=== PATIENT | male | born 1940 | race African-American/Black ===

== ENCOUNTER 2017-12-10 13:14 | Emergency (ER) | payer MEDICARE, BC ==
[2017-12-10 16:07] LABS: #Lymphocytes 1.5 thou/uL (1.20-3.40); #Monocytes 1.4 thou/uL (0.11-0.59); #Neutrophils 9.2 thou/uL (1.40-6.50); %Basophils 0.2 % (0.0-1.0); %Eosinophils 0.2 % (0.0-10.0); %Lymphocytes 12.4 % (21.0-51.0); %Monocytes 11.6 % (0.0-10.0); %Neutrophils 75.5 % (42.0-75.0); Hemoglobin 11.3 g/dL (14.0-18.0); Mean Corpuscular HGB CONC 32.6 g/dL (32.0-36.0); Mean Corpuscular Hemoglobin 30.3 pg (27.0-31.0); Mean Corpuscular Volume 92.9 fl (80.0-94.0); Mean Platelet Volume 8.5 fL (7.4-10.4); Platelet Count 169 thou/uL (130-400); RBC Distribution Width 12.1 % (11.5-14.5); Red Blood Cell (RBC) Count 3.72 mill/uL (4.70-6.10); White Blood Cell (WBC) Count 12.1 thou/uL (4.8-10.8)
[2017-12-10 16:18] LABS: ALT (SGPT) 18 U/L (8-55); AST (SGOT) 27 U/L (5-34); Albumin 3.9 g/dL (3.4-4.8); Alkaline Phosphatase 82 U/L (40-150); Anion Gap 17 mmol/L (10-20); BUN (Urea Nitrogen) 31 mg/dL (8.4-25.7); Calc. Creatinine Clearance 0 mL/min (70-130); Calcium 8.6 mg/dL (7.8-10.44); Carbon Dioxide 24 mmol/L (23-31); Chloride 99 mmol/L (98-107); Estimated GFR-MDRD 41; Globulin 3.4 g/dL (2.4-3.5); Glucose 119 mg/dL (83-110); Potassium 4.3 mmol/L (3.5-5.1); Protein, Total 7.3 g/dL (5.8-8.1); Sodium 136 mmol/L (136-145)
== END 2017-12-10 17:19 | disposition home or self-care (01) ==
LOC: ERS 13:14
DX: L03.115 Cellulitis of right lower limb (principal); I25.10 Atherosclerotic heart disease of native coronary artery without angina pectoris; I11.0 Hypertensive heart disease with heart failure; I50.9 Heart failure, unspecified; E78.5 Hyperlipidemia, unspecified
CPT/HCPCS: 36415; 80053; 83605; 85025; 87040; 99283

== ENCOUNTER 2018-05-08 17:34 | Emergency (ER) | payer MEDICARE, BC ==
[2018-05-08 19:34] LABS: #Basophils 0.1 thou/uL (0.0-0.2); #Eosinphils 0.1 thou/uL (0.0-0.7); #Lymphocytes 1.8 thou/uL (1.20-3.40); #Monocytes 0.8 thou/uL (0.11-0.59); #Neutrophils 5.4 thou/uL (1.40-6.50); %Basophils 1.1 % (0.0-1.0); %Eosinophils 0.9 % (0.0-10.0); %Lymphocytes 22.4 % (21.0-51.0); %Monocytes 9.7 % (0.0-10.0); %Neutrophils 65.9 % (42.0-75.0); Hemoglobin 15.3 g/dL (14.0-18.0); Mean Corpuscular HGB CONC 32.9 g/dL (32.0-36.0); Mean Corpuscular Hemoglobin 30.1 pg (27.0-31.0); Mean Corpuscular Volume 91.3 fL (78.0-98.0); Mean Platelet Volume 8.1 fL (7.4-10.4); Platelet Count 143 thou/uL (130-400); RBC Distribution Width 12.6 % (11.5-14.5); Red Blood Cell (RBC) Count 5.09 mill/uL (4.70-6.10); White Blood Cell (WBC) Count 8.2 thou/uL (4.8-10.8)
[2018-05-08] MEDS ORDERED: Ketorolac Tromethamine 30 MG/ML VIAL ONE (19:47)
--- NOTE | 2018-05-08 19:52 | RAD ---
LEFT ELBOW FOUR VIEWS: HISTORY: Injured elbow one week ago. Persistent pain. FINDINGS: There are moderate degenerative changes at the elbow. There is spurring from the coronoid process. Mild spurring is seen from the distal humerus, laterally, at the radial-humeral joint. There is prom inent enthesophyte from the olecranon. Joint narrowing and spurring from the posterior olecranon, at the joint space. No significant joint effusion. No evidence of acute fracture identified. 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 POS: [facility]
[2018-05-08 19:58] LABS: ALT (SGPT) 13 U/L (8-55); AST (SGOT) 14 U/L (5-34); Albumin 4.2 g/dL (3.4-4.8); Alkaline Phosphatase 102 U/L (40-150); Anion Gap 9 mmol/L (10-20); BUN (Urea Nitrogen) 10 mg/dL (8.4-25.7); CRP (Inflammatory) 2.67 mg/dL (= or < 0.5); Calc. Creatinine Clearance 0 mL/min (70-130); Calcium 9.3 mg/dL (7.8-10.44); Carbon Dioxide 32 mmol/L (23-31); Chloride 100 mmol/L (98-107); Estimated GFR-MDRD 49; Globulin 3.9 g/dL (2.4-3.5); Glucose 95 mg/dL (83-110); Potassium 3.7 mmol/L (3.5-5.1); Protein, Total 8.1 g/dL (5.8-8.1); Sodium 137 mmol/L (136-145)
[2018-05-08] MEDS ORDERED: Lidocaine 1% w/Epinephrine 1:100K 20 ML VIAL ONE (20:11)
[2018-05-08 21:23] LABS: BF Color Red; BF WBC/Nonhematics Ct. - Manua 1075 /cumm; Clarity Cloudy/Turbid (Clear); Tube # 1
[2018-05-08 21:43] LABS: BF RBC Count - Manual 30500 /cumm
[2018-05-08 21:44] LABS: Body Fluid Source SYNOVIAL FLUID
[2018-05-08 21:49] LABS: BF Segmented Neutrophils 44 %; Cell Count Non Hematic 53 %; Lymphocytes 3 %
== END 2018-05-08 22:15 | disposition home or self-care (01) ==
LOC: ERS 17:34
DX: L03.116 Cellulitis of left lower limb (principal); I25.10 Atherosclerotic heart disease of native coronary artery without angina pectoris; E78.5 Hyperlipidemia, unspecified; I11.0 Hypertensive heart disease with heart failure; I50.9 Heart failure, unspecified; Z79.899 Other long term (current) drug therapy; Z79.01 Long term (current) use of anticoagulants; Z79.82 Long term (current) use of aspirin
CPT/HCPCS: 20605; 36415; 80053; 85025; 85060; 85652; 86140; 87040; 87070; 87205; 89051; 96365; 96375; J1885; J2001; J3370

== ENCOUNTER 2019-09-27 14:32 | Outpatient (CLI) | payer MEDICARE, BC ==
--- NOTE | 2019-09-27 14:57 | RAD ---
EXAM: Chest 2 views: HISTORY: Congestive heart failure COMPARISON: 05/21/2017 FINDINGS: There is a normal-sized cardiomediastinal silhouette. The pacemaker is unchanged in position. There is no evidence of consolidation, mass, or pleural effusion. The bones are unremarkable. IMPRESSION: No evidence of acute cardiopulmonary disease
== END 2019-09-27 14:33 | disposition home or self-care (01) ==
LOC: BICRAD 14:32
PROVIDERS: ATTEND Internal Medicine Cardiovascular Disease
DX: I50.42 Chronic combined systolic (congestive) and diastolic (congestive) heart failure (principal)
CPT/HCPCS: 71046

== ENCOUNTER 2021-06-19 13:03 | Outpatient (CLI) | payer MEDICARE, BC | END 2021-06-19 13:04 | disposition home or self-care (01) | LOC: BICRAD 13:03 | PROVIDERS: ATTEND Internal Medicine Cardiovascular Disease | DX: Z92.29 Personal history of other drug therapy (principal) | CPT/HCPCS: 71046 ==

== ENCOUNTER 2022-01-27 09:20 | Outpatient (CLI) | payer MEDICARE, BC | END 2022-01-27 09:21 | disposition home or self-care (01) | LOC: BICCT 09:20 | PROVIDERS: ATTEND Specialist | DX: C18.7 Malignant neoplasm of sigmoid colon (principal); N28.89 Other specified disorders of kidney and ureter; K80.20 Calculus of gallbladder without cholecystitis without obstruction; Z98.890 Other specified postprocedural states | CPT/HCPCS: 74176 ==

== ENCOUNTER 2022-02-19 10:45 | Inpatient (IN) | payer MEDICARE, BC ==
[2022-02-20 11:05] VITALS: BMI 31.1
[2022-02-24] MEDS ORDERED: Fentanyl 100 MCG/2 ML VIAL ONE ×2 (06:38→11:49)
[2022-02-24] MEDS ORDERED: Midazolam HCl 2 mg/2 ml Vial ONE (06:38)
[2022-02-24] MEDS ORDERED: Acetaminophen 500 MG TAB ONE (06:43)
[2022-02-24] MEDS ORDERED: Ketorolac Tromethamine 30 MG/ML VIAL ONE (06:43)
[2022-02-24] MEDS ORDERED: Lidocaine 1% w/Epinephrine 1:100K 20 ML VIAL ONE (06:52)
[2022-02-24] MEDS ORDERED: fentaNYL Citrate/PF 100 MCG/2 ML SYRINGE ONE (07:23)
[2022-02-24] MEDS ORDERED: Phenylephrine 10 MG/ML VIAL ONE (07:23)
[2022-02-24] MEDS ORDERED: SUGAMMADEX SODIUM 200 MG/2 ML VIAL ONE (07:23)
[2022-02-24] MEDS ORDERED: cefOXitin 2 GM VIAL ONE ×2 (07:26→09:36)
[2022-02-24] MEDS ORDERED: Sodium Chloride 0.9% 100 ML ONE (07:26)
[2022-02-24] MEDS ORDERED: PROPOFOL 200 MG/20 ML VIAL ONE (07:41)
[2022-02-24] MEDS ORDERED: Lidocaine 1% PF 5 ML VIAL ONE (07:41)
[2022-02-24] MEDS ORDERED: ePHEDrine 50 MG/ML VIAL ONE (07:41)
[2022-02-24] MEDS ORDERED: Ondansetron PF 4 MG/2 ML Vial ONE (07:41)
[2022-02-24] MEDS ORDERED: Dexamethasone 20 MG/5 ML VIAL ONE (07:41)
[2022-02-24] MEDS ORDERED: PHENYLEPHRINE-NS 100 MCG/ML 10 ML SYRINGE ONE (07:41)
[2022-02-24] MEDS ORDERED: Bupivacaine HCl 0.5%/Epinephrine 1:200,000/PF 30 ml Vial ONE (07:41)
[2022-02-24] MEDS ORDERED: Esmolol 100 MG/10 ML VIAL ONE (07:41)
[2022-02-24] MEDS ORDERED: Rocuronium Bromide 10 MG/ML (10ML VIAL) ONE (07:41)
[2022-02-24] MEDS ORDERED: Promethazine HCl 25 MG/ML VIAL IVPB PRN (10:40)
[2022-02-24] MEDS ORDERED: Ondansetron HCl/PF 4 MG/2 ML Vial IVP PRN (10:40)
[2022-02-24] MEDS ORDERED: HYDROmorphone 2 MG/ML VIAL SLOW IVP PRN (10:40)
[2022-02-24] MEDS ORDERED: Morphine 4 MG/ML VIAL SLOW IVP PRN (11:28)
[2022-02-24] MEDS ORDERED: Ondansetron PF 4 MG/2 ML Vial IVP PRN (11:28)
[2022-02-24] MEDS ORDERED: Promethazine HCl 25 MG/ML VIAL IM PRN (11:28)
[2022-02-24] MEDS ORDERED: Morphine 2 MG/ML VIAL SLOW IVP PRN (11:28)
[2022-02-24] MEDS ORDERED: hydrALAZINE 20 MG/ML VIAL SLOW IVP PRN (11:28)
[2022-02-24] MEDS ORDERED: Potassium Chloride 20 MEQ TAB PO SCH (12:30)
[2022-02-24] MEDS ORDERED: Furosemide 40 MG TAB PO SCH (12:30)
[2022-02-24] MEDS ORDERED: Amiodarone 200 MG TAB PO SCH (12:30)
[2022-02-24] MEDS: hydrALAZINE 25 MG TAB PO SCH ×2 (18:15→20:49)
[2022-02-24] MEDS: D5 1/2 NS w/20 mEq KCL 1,000 ML IV SCH ×2 (19:27→19:51)
[2022-02-24] MEDS: Enoxaparin Sodium 40 MG/0.4 ML SYRINGE SC SCH (20:50)
[2022-02-24] MEDS ORDERED: Famotidine 20 MG TAB PO SCH (21:00)
[2022-02-24] MEDS ORDERED: Famotidine/PF 20 mg/2ml Vial SLOW IVP SCH (21:00)
[2022-02-25] MEDS: D5 1/2 NS w/20 mEq KCL 1,000 ML IV SCH ×3 (02:26→20:23)
[2022-02-25 06:24] LABS: #Lymphocytes 0.6 thou/uL (1.20-3.40); #Monocytes 0.8 thou/uL (0.11-0.59); #Neutrophils 10.6 thou/uL (1.40-6.50); %Basophils 0.2 % (0.0-1.0); %Lymphocytes 5.3 % (21.0-51.0); %Monocytes 6.8 % (0.0-10.0); %Neutrophils 87.7 % (42.0-75.0); Hemoglobin 8.1 g/dL (14.0-18.0); Mean Corpuscular HGB CONC 29.4 g/dL (32.0-36.0); Mean Corpuscular Hemoglobin 24.6 pg (27.0-31.0); Mean Corpuscular Volume 83.6 fL (78.0-98.0); Platelet Count 175 thou/uL (130-400); RBC Distribution Width 14.9 % (11.5-14.5); Red Blood Cell (RBC) Count 3.27 mill/uL (4.70-6.10); White Blood Cell (WBC) Count 12.1 thou/uL (4.8-10.8)
[2022-02-25] MEDS: HYDROcodone/Acetaminophen 7.5/325 mg Tablet PO PRN ×2 (06:31→20:25)
[2022-02-25 06:40] LABS: Anion Gap 13 mmol/L (10-20); BUN (Urea Nitrogen) 20 mg/dL (8.4-25.7); Calc. Creatinine Clearance 41 mL/min (70-130); Calcium 8.4 mg/dL (7.8-10.44); Carbon Dioxide 24 mmol/L (23-31); Chloride 104 mmol/L (98-107); Glucose 121 mg/dL (83-110); Potassium 4.7 mmol/L (3.5-5.1); Sodium 136 mmol/L (136-145)
[2022-02-25] MEDS ORDERED: HYDROcodone/Acetaminophen 7.5/325 mg Tablet PO PRN (07:56)
[2022-02-25] MEDS: hydrALAZINE 25 MG TAB PO SCH ×3 (09:43→20:22)
[2022-02-25] MEDS: Tamsulosin HCl 0.4 MG CAP PO SCH (09:43)
[2022-02-25] MEDS: Amiodarone 200 MG TAB PO SCH (09:43)
[2022-02-25] MEDS: Potassium Chloride 20 MEQ TAB PO SCH (09:44)
[2022-02-25] MEDS: Furosemide 40 MG TAB PO SCH (09:44)
[2022-02-25] MEDS: Famotidine 20 MG TAB PO SCH (20:22)
[2022-02-25] MEDS: Enoxaparin Sodium 40 MG/0.4 ML SYRINGE SC SCH (20:23)
[2022-02-25] MEDS ORDERED: Famotidine/PF 20 mg/2ml Vial SLOW IVP SCH (21:00)
[2022-02-26] MEDS: D5 1/2 NS w/20 mEq KCL 1,000 ML IV SCH ×3 (03:47→20:20)
[2022-02-26 05:47] LABS: #Lymphocytes 1.2 thou/uL (1.20-3.40); #Monocytes 0.8 thou/uL (0.11-0.59); #Neutrophils 8.5 thou/uL (1.40-6.50); %Basophils 0.2 % (0.0-1.0); %Eosinophils 0.2 % (0.0-10.0); %Lymphocytes 11.5 % (21.0-51.0); %Monocytes 7.4 % (0.0-10.0); %Neutrophils 80.6 % (42.0-75.0); Hemoglobin 8.1 g/dL (14.0-18.0); Mean Corpuscular HGB CONC 29.5 g/dL (32.0-36.0); Mean Corpuscular Hemoglobin 24.8 pg (27.0-31.0); Mean Corpuscular Volume 84.2 fL (78.0-98.0); Mean Platelet Volume 7.5 fL (7.4-10.4); Platelet Count 168 thou/uL (130-400); RBC Distribution Width 14.9 % (11.5-14.5); Red Blood Cell (RBC) Count 3.26 mill/uL (4.70-6.10); White Blood Cell (WBC) Count 10.5 thou/uL (4.8-10.8)
[2022-02-26 06:06] LABS: Anion Gap 14 mmol/L (10-20); BUN (Urea Nitrogen) 22 mg/dL (8.4-25.7); Calc. Creatinine Clearance 32 mL/min (70-130); Calcium 8.7 mg/dL (7.8-10.44); Carbon Dioxide 22 mmol/L (23-31); Chloride 102 mmol/L (98-107); Glucose 110 mg/dL (83-110); Potassium 4.6 mmol/L (3.5-5.1); Sodium 133 mmol/L (136-145)
[2022-02-26] MEDS: hydrALAZINE 25 MG TAB PO SCH ×3 (08:49→20:11)
[2022-02-26] MEDS: Furosemide 40 MG TAB PO SCH (08:49)
[2022-02-26] MEDS: Potassium Chloride 20 MEQ TAB PO SCH (08:49)
[2022-02-26] MEDS: Tamsulosin HCl 0.4 MG CAP PO SCH (08:49)
[2022-02-26] MEDS: Amiodarone 200 MG TAB PO SCH (08:50)
[2022-02-26] MEDS ORDERED: Lidocaine 2% Jelly 30 GM TUBE TOP SCH (13:45)
[2022-02-26] MEDS ORDERED: Benzocaine 20% Spray 60 ML CAN FS SCH (13:45)
[2022-02-26] MEDS ORDERED: Lidocaine 2% Jelly 5 ML TUBE TOP SCH (14:00)
[2022-02-26] MEDS: Famotidine 20 MG TAB PO SCH (20:11)
[2022-02-26] MEDS: Enoxaparin Sodium 30 MG/0.3 ML SYRINGE SC SCH (20:11)
[2022-02-27] MEDS: D5 1/2 NS w/20 mEq KCL 1,000 ML IV SCH ×3 (04:34→22:44)
[2022-02-27 05:47] LABS: #Lymphocytes 1.1 thou/uL (1.20-3.40); #Monocytes 0.8 thou/uL (0.11-0.59); #Neutrophils 8.1 thou/uL (1.40-6.50); %Eosinophils 0.2 % (0.0-10.0); %Lymphocytes 10.8 % (21.0-51.0); %Monocytes 7.7 % (0.0-10.0); %Neutrophils 81.4 % (42.0-75.0); Anion Gap 12 mmol/L (10-20); BUN (Urea Nitrogen) 15 mg/dL (8.4-25.7); Calc. Creatinine Clearance 45 mL/min (70-130); Calcium 8.8 mg/dL (7.8-10.44); Carbon Dioxide 23 mmol/L (23-31); Chloride 102 mmol/L (98-107); Glucose 114 mg/dL (83-110); Hemoglobin 8.6 g/dL (14.0-18.0); Mean Corpuscular HGB CONC 29.8 g/dL (32.0-36.0); Mean Corpuscular Hemoglobin 24.6 pg (27.0-31.0); Mean Corpuscular Volume 82.8 fL (78.0-98.0); Mean Platelet Volume 8.2 fL (7.4-10.4); Platelet Count 194 thou/uL (130-400); Potassium 4.7 mmol/L (3.5-5.1); Red Blood Cell (RBC) Count 3.51 mill/uL (4.70-6.10); Sodium 132 mmol/L (136-145)
[2022-02-27] MEDS: Furosemide 40 MG TAB PO SCH (08:45)
[2022-02-27] MEDS: Amiodarone 200 MG TAB PO SCH (08:45)
[2022-02-27] MEDS: Tamsulosin HCl 0.4 MG CAP PO SCH (08:45)
[2022-02-27] MEDS: Potassium Chloride 20 MEQ TAB PO SCH (08:45)
[2022-02-27] MEDS: hydrALAZINE 25 MG TAB PO SCH ×3 (08:45→20:15)
[2022-02-27] MEDS: Enoxaparin Sodium 30 MG/0.3 ML SYRINGE SC SCH (20:15)
[2022-02-27] MEDS: Famotidine 20 MG TAB PO SCH (20:15)
[2022-02-28] MEDS: D5 1/2 NS w/20 mEq KCL 1,000 ML IV SCH (05:54)
[2022-02-28 06:16] LABS: #Lymphocytes 1.2 thou/uL (1.20-3.40); #Monocytes 0.9 thou/uL (0.11-0.59); #Neutrophils 5.6 thou/uL (1.40-6.50); %Basophils 0.3 % (0.0-1.0); %Eosinophils 0.6 % (0.0-10.0); %Neutrophils 73.1 % (42.0-75.0); Hemoglobin 8.3 g/dL (14.0-18.0); Mean Corpuscular Hemoglobin 24.3 pg (27.0-31.0); Mean Platelet Volume 8.1 fL (7.4-10.4); Platelet Count 198 thou/uL (130-400); RBC Distribution Width 15.2 % (11.5-14.5); Red Blood Cell (RBC) Count 3.42 mill/uL (4.70-6.10); White Blood Cell (WBC) Count 7.7 thou/uL (4.8-10.8)
[2022-02-28 06:36] LABS: Anion Gap 12 mmol/L (10-20); BUN (Urea Nitrogen) 15 mg/dL (8.4-25.7); Calc. Creatinine Clearance 44 mL/min (70-130); Carbon Dioxide 24 mmol/L (23-31); Chloride 103 mmol/L (98-107); Glucose 108 mg/dL (83-110); Potassium 4.4 mmol/L (3.5-5.1); Sodium 135 mmol/L (136-145)
[2022-02-28] MEDS: Tamsulosin HCl 0.4 MG CAP PO SCH (09:19)
[2022-02-28] MEDS: Amiodarone 200 MG TAB PO SCH (09:19)
[2022-02-28] MEDS: Potassium Chloride 20 MEQ TAB PO SCH (09:19)
[2022-02-28] MEDS: Furosemide 40 MG TAB PO SCH (09:19)
[2022-02-28] MEDS: hydrALAZINE 25 MG TAB PO SCH ×3 (09:19→20:24)
[2022-02-28] MEDS ORDERED: D5 1/2 NS w/20 mEq KCL 1,000 ML IV SCH (12:20)
[2022-02-28] MEDS: Enoxaparin Sodium 30 MG/0.3 ML SYRINGE SC SCH (20:23)
[2022-02-28] MEDS: Famotidine 20 MG TAB PO SCH (20:24)
[2022-03-01 05:42] LABS: #Eosinphils 0.1 thou/uL (0.0-0.7); #Lymphocytes 1.6 thou/uL (1.20-3.40); #Monocytes 0.9 thou/uL (0.11-0.59); #Neutrophils 5.4 thou/uL (1.40-6.50); %Basophils 0.1 % (0.0-1.0); %Eosinophils 0.8 % (0.0-10.0); %Lymphocytes 20.3 % (21.0-51.0); %Monocytes 10.8 % (0.0-10.0); %Neutrophils 68.1 % (42.0-75.0); Hemoglobin 8.2 g/dL (14.0-18.0); Mean Corpuscular HGB CONC 30.4 g/dL (32.0-36.0); Mean Corpuscular Hemoglobin 24.6 pg (27.0-31.0); Mean Corpuscular Volume 80.8 fL (78.0-98.0); Mean Platelet Volume 7.5 fL (7.4-10.4); Platelet Count 194 thou/uL (130-400); RBC Distribution Width 15.5 % (11.5-14.5); Red Blood Cell (RBC) Count 3.34 mill/uL (4.70-6.10); White Blood Cell (WBC) Count 7.9 thou/uL (4.8-10.8)
[2022-03-01 06:02] LABS: ALT (SGPT) 21 U/L (8-55); AST (SGOT) 34 U/L (5-34); Albumin 3.4 g/dL (3.4-4.8); Alkaline Phosphatase 57 U/L (40-110); Anion Gap 13 mmol/L (10-20); BUN (Urea Nitrogen) 18 mg/dL (8.4-25.7); Bilirubin, Total 0.8 mg/dL (0.2-1.2); Calc. Creatinine Clearance 42 mL/min (70-130); Calcium 9.1 mg/dL (7.8-10.44); Carbon Dioxide 25 mmol/L (23-31); Chloride 105 mmol/L (98-107); Globulin 3.3 g/dL (2.4-3.5); Glucose 90 mg/dL (83-110); Phosphorus 3.6 mg/dL (2.3-4.7); Potassium 4.3 mmol/L (3.5-5.1); Protein, Total 6.7 g/dL (5.8-8.1); Sodium 139 mmol/L (136-145)
[2022-03-01] MEDS: Tamsulosin HCl 0.4 MG CAP PO SCH (09:43)
[2022-03-01] MEDS: Potassium Chloride 20 MEQ TAB PO SCH (09:43)
[2022-03-01] MEDS: Furosemide 40 MG TAB PO SCH (09:43)
[2022-03-01] MEDS: Amiodarone 200 MG TAB PO SCH (09:43)
[2022-03-01] MEDS: hydrALAZINE 25 MG TAB PO SCH ×3 (09:44→20:48)
[2022-03-01] MEDS ORDERED: HYDROcodone/Acetaminophen 5/325 mg Tablet PO PRN (19:00)
[2022-03-01] MEDS ORDERED: Acetaminophen 500 MG TAB PO PRN (19:00)
[2022-03-01] MEDS: Gabapentin 300 MG CAP PO SCH (20:48)
[2022-03-01] MEDS: Famotidine 20 MG TAB PO SCH (20:48)
[2022-03-01] MEDS ORDERED: Enoxaparin Sodium 30 MG/0.3 ML SYRINGE SC SCH (21:00)
[2022-03-02] MEDS: Gabapentin 300 MG CAP PO SCH ×3 (09:34→21:23)
[2022-03-02] MEDS: Tamsulosin HCl 0.4 MG CAP PO SCH (09:34)
[2022-03-02] MEDS: Aspirin Chewable 81 MG TAB PO SCH (09:34)
[2022-03-02] MEDS: Potassium Chloride 20 MEQ TAB PO SCH (09:34)
[2022-03-02] MEDS: Amiodarone 200 MG TAB PO SCH (09:34)
[2022-03-02] MEDS: hydrALAZINE 25 MG TAB PO SCH ×3 (09:35→21:23)
[2022-03-02] MEDS: Furosemide 40 MG TAB PO SCH (09:35)
[2022-03-02] MEDS: Polyethylene Glycol 3350 17 GM Packet PO SCH (09:35)
[2022-03-02] MEDS ORDERED: Rivaroxaban 15 MG TAB PO SCH (18:00)
[2022-03-02] MEDS: Famotidine 20 MG TAB PO SCH (21:23)
[2022-03-03] MEDS: Tamsulosin HCl 0.4 MG CAP PO SCH (08:31)
[2022-03-03] MEDS: Potassium Chloride 20 MEQ TAB PO SCH (08:31)
[2022-03-03] MEDS: Furosemide 40 MG TAB PO SCH (08:31)
[2022-03-03] MEDS: Aspirin Chewable 81 MG TAB PO SCH (08:31)
[2022-03-03] MEDS: Gabapentin 300 MG CAP PO SCH (08:31)
[2022-03-03] MEDS: Amiodarone 200 MG TAB PO SCH (08:32)
[2022-03-03] MEDS: Polyethylene Glycol 3350 17 GM Packet PO SCH (08:32)
[2022-03-03] MEDS: hydrALAZINE 25 MG TAB PO SCH (08:32)
[2022-03-03 11:16] VITALS: BP 118/64; TEMP 97.8
== END 2022-03-03 14:41 | disposition home or self-care (01) | DRG 327 ==
LOC: SURG A 02-24 06:02
PROVIDERS: ADMIT Specialist; ATTEND Specialist
PROC: 0DBN0ZZ Excision of Sigmoid Colon, Open Approach (ICD-10-PCS; principal; 2022-02-24)
PROC: 0WQF0ZZ Repair Abdominal Wall, Open Approach (ICD-10-PCS; 2022-02-24)
PROC: 0DBP0ZZ Excision of Rectum, Open Approach (ICD-10-PCS; 2022-02-24)
PROC: 0DJ04ZZ Inspection of Upper Intestinal Tract, Percutaneous Endoscopic Approach (ICD-10-PCS; 2022-02-24)
PROC: 3E0T3BZ Introduction of Anesthetic Agent into Peripheral Nerves and Plexi, Percutaneous Approach (ICD-10-PCS; 2022-02-24)
PROC: 0DN80ZZ Release Small Intestine, Open Approach (ICD-10-PCS; 2022-02-24)
PROC: 0D9670Z Drainage of Stomach with Drainage Device, Via Natural or Artificial Opening (ICD-10-PCS; 2022-02-27)
DX: C18.7 Malignant neoplasm of sigmoid colon (principal); K91.71 Accidental puncture and laceration of a digestive system organ or structure during a digestive system procedure; K56.7 Ileus, unspecified; Y83.8 Other surgical procedures as the cause of abnormal reaction of the patient, or of later complication, without mention of misadventure at the time of the procedure; Z20.822 Contact with and (suspected) exposure to COVID-19; N18.9 Chronic kidney disease, unspecified; D63.1 Anemia in chronic kidney disease; Z53.31 Laparoscopic surgical procedure converted to open procedure; Z98.890 Other specified postprocedural states; Z95.0 Presence of cardiac pacemaker; Z98.42 Cataract extraction status, left eye; Z98.41 Cataract extraction status, right eye; Z88.0 Allergy status to penicillin; Z79.899 Other long term (current) drug therapy; Z79.82 Long term (current) use of aspirin; Z79.01 Long term (current) use of anticoagulants; K43.2 Incisional hernia without obstruction or gangrene
CPT/HCPCS: 36415; 71045; 74018; 80048; 80053; 83735; 84100; 85025; 86850; 86900; 86901; 88305; 88307; 88309; A4649; C1776; C1889; J0694; J1100; J1650; J1885; J2250; J2370; J2405; J2704; J3010; J3480; J3490; U0003; U0005

== ENCOUNTER 2022-02-19 10:51 | Outpatient (CLI) | payer MEDICARE, BC ==
[2022-02-19 12:31] LABS: #Eosinphils 0.1 10x3/uL (0.0-0.5); #Monocytes 0.4 10x3/uL (0.0-1.1); #Neutrophils 2.2 10x3/uL (1.5-8.4); %Basophils 0.5 % (0.0-2.0); %Eosinophils 1.4 % (0.0-6.0); %Lymphocytes 35.5 % (18.0-47.0); %Monocytes 9.4 % (0.0-10.0); Hemoglobin 8.9 g/dL (13.5-17.5); Mean Corpuscular HGB CONC 28.6 g/dL (32.0-36.0); Mean Corpuscular Hemoglobin 23.9 pg (27.0-33.0); Mean Corpuscular Volume 83.4 fl (81.2-95.1); Mean Platelet Volume 10.3 fl (7.4-10.4); Platelet Count 202 10x3/uL (150-450); RBC Distribution Width 15.3 % (11.5-14.5); Red Blood Cell (RBC) Count 3.73 10x6/uL (4.32-5.72); White Blood Cell (WBC) Count 4.2 10x3/uL (3.5-10.5)
[2022-02-19 12:46] LABS: Anion Gap 15 mmol/L (10-20); BUN (Urea Nitrogen) 23 mg/dL (8.4-25.7); Calc. Creatinine Clearance 0 mL/min (70-130); Calcium 8.6 mg/dL (7.8-10.44); Carbon Dioxide 26 mmol/L (23-31); Chloride 105 mmol/L (98-107); Glucose 89 mg/dL (83-110); Potassium 4.7 mmol/L (3.5-5.1); Sodium 141 mmol/L (136-145)
[2022-02-19 13:27] LABS: Hypochromia SLIGHT = 6-15 cells (100X) (0-5/hpf)
[2022-02-19 14:09] LABS: Hemoglobin A1c 4.9 % (4.0-6.0)
== END 2022-02-19 10:52 | disposition home or self-care (01) ==
LOC: LABBT 10:51
PROVIDERS: ATTEND Specialist
DX: Z01.818 Encounter for other preprocedural examination (principal); C18.7 Malignant neoplasm of sigmoid colon; Z20.822 Contact with and (suspected) exposure to COVID-19
CPT/HCPCS: 80048; 83036; 85025; U0003; U0005

== ENCOUNTER 2023-01-25 11:17 | Outpatient (CLI) | payer MEDICARE, BC | END 2023-01-25 11:18 | disposition home or self-care (01) | LOC: RAD 11:17 | PROVIDERS: ATTEND Internal Medicine Cardiovascular Disease | DX: I47.20 Ventricular tachycardia, unspecified (principal); I51.7 Cardiomegaly | CPT/HCPCS: 71046 ==

== ENCOUNTER 2025-07-20 11:44 | Outpatient (CLI) | payer MEDICARE, BC | END 2025-07-20 11:45 | disposition home or self-care (01) | LOC: BICRAD 11:44 | PROVIDERS: ATTEND Internal Medicine Cardiovascular Disease | DX: I47.20 Ventricular tachycardia, unspecified (principal) | CPT/HCPCS: 71046 ==